=== PATIENT | male | born 1950 | race Caucasian/White ===

== ENCOUNTER 2017-08-12 08:46 | Outpatient (CLI) | payer MEDICARE ==
[~2017-08-12] VITALS: Ht 182.9 cm; Wt 106.8 kg
--- NOTE | ~2017-08-12 | HEMODYNAMI ---
PATIENT:SASKIA SÁNCHEZ MEDICAL RECORD: [id number] : 46 LOCATION:[facility] ADMISSION DATE: 08/12/17 Generatedon:08/12/201712:16 Patient name: SASKIA SÁNCHEZ Patient #: [id number] : 1950 Date of study: 08/12/2017 Page: Of Hemodynamic Procedure Report Patient Data Patient Demographics Procedure consent was obtained First Name: SASKIA Gender: Male Last Name: PRINCESS : 1950 Middle Initial: OWEN Age: 67 year(s) Patient #: [id number] Race: Unknown SSN: [id number] Additional ID: [id number] Contact details Address: [address] [place] [address] lane State: [place] City: [place] Zip code: [address] Past Medical History Allergies: No known allergies Admission Admission Data Admission Date: 08/12/2017 Admission Time: 8:46 Admit Source: Other Lab Results Lab Result Date: 08/12/2017 Lab Result Time: 9:34 Biochemistry Name Units Result Min Max BUN mg/dl 21 --(----)-* 7 18 Creatinine mg/dl 1 --(--*-)-- 0.6 1.3 CBC Name Units Result Min Max Hematocrit % 42.9 --(*---)-- 42 54 Hemoglobin g/dl 14.8 --(-*--)-- 13.5 17.5 Procedure Procedure Types Cath Procedure Diagnostic Procedure [facility] w/Coronaries FFR/IVUS Intra-Coronary IVUS Initial PCI Procedure Coronary Stent Coronary Stent Initial Miscellaneous Procedures Moderate Sedation up to 30 minutes Procedure Description Procedure Date Procedure Date: 08/12/2017 Procedure Start Time: 11:54 Procedure End Time: 12:16 Procedure Staff Name Function Edi Panchal MD Performing Physician Jami Fleming RT Monitor Sammy Perera RT Scrub Selwyn Bonds RN Nurse Jessy Galvez RN Nurse Procedure Data Cath Procedure Fluoroscopy Diagnostic fluoroscopy Total fluoroscopy Time: 6.2 time: 6.2 min min Diagnostic fluoroscopy Total fluoroscopy dose: dose: 656.17 mGy 656.17 mGy Contrast Material Contrast Material Type Amount (ml) Isovue 300 122 Entry Location Entry Primary Successful Side Size Upsize Upsize Entry Closure Real ccessful Closure Location (Fr) 1 (Fr) 2 (Fr) Remarks Device Remarks Radial Right 6 Fr Mechanical artery Short Compression Estimated blood loss: 10 ml Diagnostic catheters Device Type Used For End Catheter Placement DIAGNOSTIC Mesa 110cm 5 LV Angiography Fr catheter ([id number]) DIAGNOSTIC Mesa 110cm 5 Left Coronary Fr catheter ([id number]) Angiography DIAGNOSTIC Mesa 110cm 5 Right Coronary Fr catheter ([id number]) Angiography Procedure Complications No complications Procedure Medications Medication Administration Route Dosage 0.9% NaCl I.V. ml/hr Oxygen NC 2 l/min Lidocaine 2% added to field 20 Heparin Flush Bag added to field 2 bags (1000units/500ml NS) Radial Cocktail added to field 1 syringe (Verapomil 2mg/Nitro 400mcg/Heparin 1500units) Fentanyl I.V. 50 mcg Versed I.V. 1 mg Versed I.V. 1 mg Fentanyl I.V. 50 mcg Heparin Bolus I.V. 4000 units Hemodynamics Rest Pre Cath Intra NCS Post Cath Vital Signs Time Heart Resp SPO2 etCO2 NIBP (mmHg) Rhythm Pain Sedation Rate (ipm) (%) (mmHg) Status Level (bpm) 11:39:58 119 16 98 33.9 152/87(129) NSR 0 (11) 10(A) , No pain 11:44:28 63 16 98 37.7 144/86(127) NSR 0 (11) 10(A) , No pain 11:48:48 59 19 97 19.6 132/71(101) NSR 0 (11) 10(A) , No pain 11:53:06 60 18 95 39.9 116/76(98) NSR 0 (11) 10(A) , No pain 11:57:29 63 18 95 42.2 101/60(76) NSR 0 (11) 9(A) , No pain 12:01:40 63 17 98 46 115/74(85) NSR 0 (11) 9(A) , No pain 12:05:54 64 19 96 8.2 113/70(87) NSR 0 (11) 9(A) , No pain 12:10:11 64 18 97 22.6 124/71(100) NSR 0 (11) 10(A) , No pain 12:14:29 60 13 93 48.2 114/76(91) NSR 0 (11) 10(A) , No pain Medications Time Medication Route Dose Verified Delivered Reason Note s Effectiveness by by 11:43:37 0.9% NaCl I.V. ml/hr Edi Jiménez used for Abdulkadir Galvez RN procedure 11:43:46 Oxygen NC 2 l/min Edi Jiménez Per physician Abdulkadir Galvez RN 11:43:53 Lidocaine 2% added 20ml Edi Daley for local to vial Abdulkadir Panchal MD anesthetic field 11:44:02 Heparin Flush added 2 bags Edi Daley used for Bag to Abdulkadir Panchal MD procedure (1000units/500ml field NS) 11:48:09 Radial Cocktail added 1 Editripp Daley for (Verapomil to syringe Abdulkadir Panchal MD vasodilation 2mg/Nitro field 400mcg/Heparin 1500units) 11:50:01 Fentanyl I.V. 50 mcg Edi Jiménez for sedation Abdulkadir Galvez RN 11:50:09 Versed I.V. 1 mg Edi Jiménez for sedation Abdulkadir Galvez RN 11:52:23 Versed I.V. 1 mg Edi Jiménez for sedation Abdulkadir Galvez RN 11:53:01 Heparin Bolus I.V. 4000 Edi Jiménez for veri fied units Abdulkadir Galvez RN anticoagulation by 11:53:01 Fentanyl I.V. 50 mcg Edi Jiménez for sedation Abdulkadir Galvez RN Procedure Log Time Note 11:25:23 Informed consent obtained and on chart 11:25:31 Admit Source: Other 11:25:59 Diagnostic Cath status Elective 11:26:01 Time tracking: Regular hours 11:26:04 Plan of Care:Hemodynamics will remain stable., Cardiac rhythm will remain stable., Comfort level will be maintained., Respiratory function will remain adequate., Patient/ family verbilizes understanding of procedure., Procedure tolerated without complication., Recovers from procedure without complications.. 11:26:13 H&P Date Dictated: 08/10/2017 Within 30 days and on chart., H&P Addendum completed by physician on day of procedure. (MUST COMPLETE FOR ALL OUTPATIENTS). 11::33 Family in waiting room. 11::34 Patient NPO since Midnight. 11::30 Lab Result : Creatinine 1 mg/dl :: Lab Result : BUN 21 mg/dl 11:: Lab Result : Hemoglobin 14.8 g/dl 11:: Lab Result : Hematocrit 42.9 % 11:: Lab results completed and on chart. 11:33:53 Patient received from Pre/Post Procedure Room to CCL 3 Alert and oriented. Tansferred to table in Supine position. 11:33:54 Warm blankets applied, and mando hugger turned on for patient comfort. 11:33:54 Correct patient and procedure confirmed by team. 11:33:54 ECG and BP/O2 sat monitors applied to patient. 11:33:56 Pre-procedure instructions explained to patient. 11:33:56 Pre-op teaching completed and patient verbalized understanding. 11:34:02 Patient allergic to No known allergies 11:38:32 Vital chart was started 11:43:37 0.9% NaCl ml/hr I.V. was administered by Jessy Galvez RN; used for procedure; 11:43:46 Oxygen 2 l/min NC was administered by Jessy Galvez RN; Per physician; 11:43:53 Lidocaine 2% 20ml vial added to field was administered by Edi Panchal MD; for local anesthetic; 11:44:02 Heparin Flush Bag (1000units/500ml NS) 2 bags added to field was administered by Edi Panchal MD; used for procedure; 11:48:09 Radial Cocktail (Verapomil 2mg/Nitro 400mcg/Heparin 1500units) 1 syringe added to field was administered by Edi Panchal MD; for vasodilation; 11:48:23 Is the patient allergic to Iodine/contrast media? No. 11:48:26 Is patient on blood thinner?Yes 11:48:28 ACC The patient was administered the following blood thiners within the last 24 hours: ACCAspirin, ACCPlavix 11:48:30 Patient diabetic? No. 11:48:33 Previous problem with sedation/anesthesia? No ? 11:48:34 Snore? Yes 11:48:35 Sleep apnea? No 11:48:36 Deviated septum? No 11:48:37 Opens mouth fully? Yes 11:48:37 Sticks out tongue? Yes 11:48:39 Airway obstruction? No ? 11:48:40 Dentures? No ? 11:48:42 Pre procedure: right dorsailis pedis pulse 2+ Normal; easily identifiable; not easily obliterated 11:48:44 Modified Johnathan's test Ulnar < 7 seconds 11:48:45 Patient pain scale 0/10 ?. 11:48:49 IV patent on arrival in left hand with 0.9% NaCl at [facility]. 11:48:58 Right Radial & Right Groin area was prepped with chlora-prep and draped in sterile fashion 11:48:59 Alarms reviewed by R. N. 11:48:59 Sharps counted by scrub and verified by R.N. 11:49:06 Use device set Radial Dx 11:49:07 ACIST Syringe (34686) opened to sterile field. 11:49:08 Medline Cath Pack ([id number]) opened to sterile field. 11:49:08 Bag Decanter (2002S) opened to sterile field. 11:49:09 SHEATH 6FR Slender ([id number]) opened to sterile field. 11:49:09 DIAGNOSTIC WIRE .035 260cm J wire (062506) opened to sterile field. 11:49:10 ACIST Hand Control (44170) opened to sterile field. 11:49:11 ACIST Manifold (98172) opened to sterile field. 11:49:11 Tegaderm 4 x 4 (1626W) opened to sterile field. 11:49:12 MBrace Wrist Support ([id number]) opened to sterile field. 11:49:33 Final Timeout: patient, procedure, and site verified with staff and physician. All members of the team are in agreement. 11:49:36 Right Radial site verified by team. 11:49:38 Physical assessment completed. ASA score P 2 - A patient with mild systemic disease as per Edi Panchal MD. 11:49:41 Sedation plan: IV Moderate Sedation Medication:Versed, Fentanyl 11:50:01 Fentanyl 50 mcg I.V. was administered by Jessy Galvez RN; for sedation; 11:50:09 Versed 1 mg I.V. was administered by Jessy Galvez RN; for sedation; 11:52:23 Versed 1 mg I.V. was administered by Jessy Galvez RN; for sedation; 11:53:01 Heparin Bolus 4000 units I.V. was administered by Jessy Galvez RN; for anticoagulation; verified by 11:53:01 Fentanyl 50 mcg I.V. was administered by Jessy Galvez RN; for sedation; 11:54:12 Procedure started. 11:54:12 Full Disclosure recording started 11:54:17 Local anesthetic to right radial artery with Lidocaine 2% by Edi Panchal MD.INITIAL ACCESS ONLY 11:54:26 A 6 Fr Short sheath was inserted into the Right Radial artery 11:55:31 A DIAGNOSTIC Mesa 110cm 5 Fr catheter ([id number]) was advanced over the wire and used for LV Angiography. 11:56:07 LV gram done using AVILES 11:56:20 Injector settings: Ml/sec: 5, Volume: 15, 11:56:25 EF : 55 % 11:56:58 A DIAGNOSTIC Mesa 110cm 5 Fr catheter ([id number]) was advanced over the wire and used for Left Coronary Angiography. 11:57:34 A DIAGNOSTIC Mesa 110cm 5 Fr catheter (157588) was advanced over the wire and used for Right Coronary Angiography. 11:58:17 GUIDE 6FR XB 3.5 SH catheter ([id number]) opened to sterile field. 11:59:05 Catheter removed. 11:59:11 6 Fr XB 3.5 SH guide catheter was inserted over the wire 11:59:24 Use device set [facility] PCI 11:59:27 INFLATOR Merit BasixCompak (BL8263) opened to sterile field. 11:59:49 CHOICE PT Extra Support J 300cm guide wire ([id number]) opened to sterile field. 12:02:25 GUIDE 6FR XBLAD 4.0 catheter (42152044) opened to sterile field. 12:02:46 Viola Walton Eagleye IVUS Catheter (42397W) opened to sterile field. 12:02:59 Guide catheter removed. 12:03:06 6 Fr XBLAD 4.0 guide catheter was inserted over the wire 12:03:12 Choice PT ES wire advanced. 12:03:55 IVUS catheter advanced over wire. 12:03:56 IVUS pass to LAD lesion performed. 12:05:19 IVUS catheter removed over wire. 12:07:34 Inflation Number: 1 A PATRICIA OTW 2.5 x 38 stent ([id number]) was prepped and advanced across the Mid LAD. The stent was deployed at 15 KACI for 0:06 (min:sec). 12:08:03 Stent catheter was removed intact over wire. 12:10:15 Inflation Number: 1 A PATRICIA OTW 2.25 x 22 stent ([id number]) was prepped and advanced across the Dist LAD. The stent was deployed at 13 KACI for 0:07 (min:sec). 12:10:26 Inflation number: 2 The stent balloon was then re-inflated across the Dist LAD to 17 KACI for 0:10 (min:sec). 12:10:31 Stent catheter was removed intact over wire. 12:10:48 Wire removed. 12:10:48 Guide catheter removed. 12:11:09 Sheath removed intact; hemostasis achieved with Mechanical Compression to the Right Radial artery. 12:11:12 Procedure ended.(Physican Out) 12:11:38 Fluoroscopy time 06.20 minutes. 12:11:44 Fluoroscopy dose: 656.17 mGy 12:11:44 Flurop Dose total: 656.17 12:11:47 Contrast amount:Isovue 300 122ml. 12:11:48 Sharps counted by scrub and verified by R.N. 12:11:52 TR band inflated with 12cc of air. 12:11:53 Insertion/operative site no bleeding no hematoma. 12:11:59 Post right radial artery:stable, soft, clean and dry 12:12:00 Post Procedure Pulses reassessed and unchanged 12:12:04 Post-procedure physical assessment completed. ASA score P 2 - A patient with mild systemic disease as per Edi Panchal MD. 12:12:07 Post procedure rhythm: unchanged. 12:12:11 Estimated blood loss: 10 ml 12:12:12 Post procedure instruction explained to patient.Patient verbalizes understanding. 12:12:13 Patient needs reinforcement of post procedure teaching. 12:12:18 Procedure Complication : No complications 12:12:21 See physician's report for complete and final results. 12:13:57 TR BAND Standard ([id number]) opened to sterile field. 12:14:57 Procedure type changed to Cath procedure, Diagnostic procedure, LHC, LHC w/Coronaries, FFR/IVUS, Intra-Coronary IVUS Initial, PCI procedure, Coronary Stent, Coronary Stent Initial, Miscellaneous Procedures, Moderate Sedation up to 30 minutes 12:15:47 Procedure and supply charges have been captured, reviewed, submitted and are correct. 12:15:49 Vital chart was stopped 12:15:50 Report given to Pre/Post Procedure Room. 12:15:53 Patient transfered to Pre/Post Procedure Room with Stretcher. 12:16:05 Procedure ended. 12:16:05 Full Disclosure recording stopped 12:16:07 End room use (Document Last) Intervention Summary Intervention Notes Time ActionType Lesion and Equipment Action# Pressure Duration Attributes Used 12:07:34 Place stent Mid LAD PATRICIA OTW 2.5 1 15 00:06 x 38 stent ([id number]) 12:10:15 Place stent Dist LAD PATRICIA OTW 2.25 1 13 00:07 x 22 stent ([id number]) 12:10:26 Reinflate Dist LAD PATRICIA OTW 2.25 2 17 00:10 stent x 22 stent balloon ([id number]) Device Usage Item Name Manufacture Quantity Catalog Number Hospital Part Current Min imal Lot# / Charge Number Stock Stock Serial# Code ACIST Syringe Acist 1 14872 202190 325078 792133 20 (50516) Medical Systems Inc Medline Cath Cardinal 1 [id number] 653603 15215 169407 5 [facility] ([id number]) Bag Decanter Microtek 1 145781 40300 369980 5 () Medical Inc. SHEATH 6FR Terumo 1 [id number] 730741 336587 095713 40 Slender ([id number]) DIAGNOSTIC [facility] 1 137972 176706 812979 406794 30 WIRE .035 260cm J wire (585358) ACIST Hand Acist 1 93371 739012 642634 536579 5 Control Medical (51255) Systems Inc ACIST Acist 1 17614 178772 839880 559326 5 Manifold Medical (38621) Systems Inc Tegaderm 4 x 3M 1 1626W 040649 505404 578403 5 4 (1626W) MBrace Wrist Advanced 1 140-0250-00 174687 08151 610754 5 Support Vascular ([id number]) Dynamics DIAGNOSTIC Terumo 1 40-9253 493842 708672 408116 5 Mesa 110cm 5 Fr catheter (395673) GUIDE 6FR XB Cardinal 1 [id number] 380658 045072 183922 2 3.5 SH Health catheter (95559493) INFLATOR Merit 1 DB5948 491084 284146 564579 15 [facility] Medical BasixCompak (ND7579) CHOICE PT [place] 1 [id number] 822838 774997 896460 5 Extra Support Scientific J 300cm guide wire (1014937V8) GUIDE 6FR Cardinal 1 [id number] 946289 424082 456418 3 XBLAD 4.0 Health catheter (70173902) Viola Viola 1 40274G 462449 301482 780129 8 Walton Eagleye IVUS Catheter (12105R) PATRICIA OTW 2.5 Medtronic 1 [id number] 598580 52749 018505 5 [id number] x 38 stent ([id number]) PATRICIA OTW 2.25 Medtronic 1 [id number] 336520 21542 275103 5 [id number] x 22 stent ([id number]) TR BAND Terumo 1 [id number] 453890 041105 080795 40 Standard ([id number]) Signature Audit [place] Stage Time Signature Unsigned Intra-Procedure 08/12/2017 Jami 12:16:30 PM Counts RT(R) Signatures Monitor : Jami Signature : Counts RT Date : Time : [facility] [address] [place] [address]
[~2017-08-12 08:46] MED LIST: ACETAMINOPHEN500 M1 PO; ARICEPT10 MG PO; BAYER CHEWABLE81 MG PO; BENADRYL50 MG PO; CELEXA40 MG PO; PLAVIX75 MG PO; PRINIVIL10 MG PO
[2017-08-12 09:30] VITALS: BP 146/76; Ht 182.9 cm; Wt 106.8 kg
[2017-08-12 09:35] LABS: BASOPHILS 0.1 % (0-2); EOSINOPHILS 0.3 % (0-7); HEMATOCRIT 42.9 % (42.0-54.0); HEMOGLOBIN 14.8 g/dL (13.5-17.5); IMMATURE GRANULOCYTES 0.3 % (0-5); LYMPHOCYTES 18.4 % (15-50); MCH 30.9 pg (26.0-34.0); MCHC 34.5 g/dL (31.0-37.0); MCV 89.6 fL (80.0-100.0); MEAN PLATELET VOLUME 9.6 fL (7.4-10.4); MONOCYTES 6.8 % (2-11); NEUTROPHILS 74.1 % (40-80); PLATELET COUNT 228 10x3/uL (130-400); RBC 4.79 10x6/uL (4.20-6.10); RDW 12.3 % (11.5-14.5); WBC 9.6 10x3/uL (4.8-10.8)
[2017-08-12 10:03] LABS: CALC OSMOLALITY 285 mosm/kg (275-300); CALCIUM 10.3 mg/dL (8.5-10.1); CARBON DIOXIDE 28.3 mmol/L (21.0-32.0); CHLORIDE - SERUM 106 mmol/L (98-107); GLUCOSE 106 mg/dL (74-106); POTASSIUM - SERUM 3.8 mmol/L (3.5-5.1); SODIUM 142 mmol/L (136-145); UREA NITROGEN 21 mg/dL (7-18); eGFR NON AFRICAN AMERICAN 79 mL/min (90-120)
[2017-08-12] MEDS ORDERED: NEURONTIN600 MG PO (10:05)
--- NOTE | 2017-08-12 12:40 | NUR ---
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 TR BAND TO RIGHT WRIST IS CDI, AREA FREE FROM BLEEDING OR HEMATOMA. FINGERS WARM, CAP REFILL IS BRISK. SINUS BRADYCARDIA WITH BP 119/72. PT DENIES ANY C/O. AT BEDSIDE AND CALL LIGHT IN REACH.
--- NOTE | 2017-08-12 12:44 | NUR ---
1240 PT COLTON PO FLUIDS WITH NO C/O. TR BAND CDI. NSR, RATE 60. FINGERS WARM, CAP REFILL IS BRISK. CALL LIGHT IN REACH.
--- NOTE | 2017-08-12 13:17 | NUR ---
TR BAND TO RIGHT WRIST IS CDI, NO BLEEDING OR HEMATOMA NOTED. FINGERS WARM, CAP REFILL IS BRISK, AT BEDSIDE. RR EVEN AND UNLABORED. CALL LIGHT IN REACH. SANDWICH SERVED.
--- NOTE | 2017-08-12 13:39 | NUR ---
PT ALERT, DENIES ANY C/O. TR BAND TO RIGHT WRIST IS CDI, NO BLEEDING OR HEMATOMA NOTED. FINGERS WARM, CAP REFILL IS BRISK. AT BEDSIDE,
--- NOTE | 2017-08-12 14:05 | NUR ---
1405 PT HAS VOIDED 600 CC LEAR YELLOW URINE USING URINAL. TR BAND CDI, NO BLEEDING NOTED. FINGERS WARM, CAP REFILL IS BRISK.
--- NOTE | 2017-08-12 15:15 | NUR ---
1515 3 CC OF AIR REMOVED FROM TR BAND WITH NO BLEEDING OR HEMATOMA NOTED. PT HAS COLTON SANDWICH WITH NO C/O NAUSEA. CALL LIGHT IN REACH. PT DENIES NEESDS AT THIS TIME.
--- NOTE | 2017-08-12 15:30 | NUR ---
1530 3 CC OF AIR REMOVED FROM TR BAND WITH NO BLEEDING OR HEMATOMA NOTED.
--- NOTE | 2017-08-12 15:45 | NUR ---
1545 REMAINING AIR REMOVED FROM TR BAND WITH NO BLEEDING OR HEMATOMA NOTED. FINGERS WARM, CAP REFILL IS BRISK. PT DENIES ANY C/O AT THIS TIME.
--- NOTE | 2017-08-12 16:00 | NUR ---
1600 IV DC'D WITH CATH INTACT. 2X2 AND TEGADERM CDI TO RIGHT WRIST. WRIST IMMOBILIZER IN PLACE. PT IS DRESSING FOR DC TO HOME. L
--- NOTE | 2017-08-12 16:51 | NUR ---
4827 DC INSTRUCTIONS REVIEWED WITH PT AND WHO VERBALIZE UNDERSTANDING. STENT CARD, PLAVIX PRESCRIPTION AND WRITTEN INSTRUCTIONS GIVEN TO PT. PT ESCORTED TO PRIVATE AUTO VIA WC BY NURSE WITH DRIVING HIM HOME. DRESSING TO RIGHT WRIST REMAINS CDI, PT DENIES ANY C/O UPON DC TO HOME.
--- NOTE | 2017-08-24 15:46 | OP ---
PATIENT NAME: SASKIA SÁNCHEZ MEDICAL RECORD: [id number] :46 LOCATION:D.CAT ADMISSION DATE: SURGEON: DIPTI DONALD MD DATE OF OPERATION: 08/12/2017 PROCEDURES: 1. PTCA stent to LAD. 2. Intravascular ultrasound. 3. Left heart catheterization. 4. Selective coronary angiography. 5. Left ventriculogram. INDICATION: Angina and coronary artery disease. PROCEDURE IN DETAIL: After informed consent was obtained and after detailed explanation of risks, benefits as well as alternative therapies, the patient elected to proceed with angiogram and angioplasty. The right radial area was prepped and draped in normal sterile fashion. The right radial artery was cannulated via modified Seldinger technique with placement of 6-[place]ib[place] sheath. All catheters exchanged through this sheath. FINDINGS: Left ventriculogram was performed in the standard 30-degree AVILES view reveals good cardiac wall motion throughout all segments. Overall ejection fraction estimated at 50%. SELECTIVE CORONARY ANGIOGRAPHY: 1. Left main showed no significant angiographic disease. 2. Left anterior descending has a long area of 80% to 90% stenosis throughout the mid and mid distal vessel. 3. Left circumflex has 100% occlusion in the mid vessel. 4. The right coronary artery has multiple areas of 80% stenosis throughout the mid distal vessel. PTCA STENT OF THE LAD: The stents used were 2.5 x 38 and 2.25 x 22 both [place] stents. Result was 0% residual stenosis. OVERALL IMPRESSION: Successful percutaneous transluminal coronary angioplasty stent of the left anterior descending going from multiple areas of 80% initial stenosis to 0% residual. TRANSINT:[id number] Voice Confirmation ID: [id number] DOCUMENT ID: [id number] DIPTI DONALD MD at 1546 CC: [id number] DICTATION DATE: 08/12/[address] PRODUCTION MANAGER: 08/12/17 1346 [facility] CLI 08/12/[address] [address]
== END 2017-08-12 16:25 | disposition home or self-care (01) ==
LOC: D.CATH 08:46
PROVIDERS: Internal Medicine Interventional Cardiology
DX: I25.119 Atherosclerotic heart disease of native coronary artery with unspecified angina pectoris (principal); Z01.812 Encounter for preprocedural laboratory examination
CPT/HCPCS: 93458; 92978; C9600

== ENCOUNTER 2017-08-16 08:02 | Outpatient (CLI) | payer MEDICARE ==
[2017-08-12 09:30] VITALS: Ht 182.9 cm; Wt 106.6 kg
[~2017-08-16] VITALS: Ht 182.9 cm; Wt 106.6 kg
--- NOTE | ~2017-08-16 | HEMODYNAMI ---
PATIENT:SASKIA SÁNCHEZ MEDICAL RECORD: [id number] : 46 LOCATION:D.CAT ADMISSION DATE: 08/16/17 Generatedon:08/16/201712:21 Patient name: SASKIA SÁNCHEZ Patient #: [id number] : 1950 Date of study: 08/16/2017 Page: Of Hemodynamic Procedure Report Patient Data Patient Demographics Procedure consent was obtained First Name: SASKIA Gender: Male Last Name: PRINCESS : 1950 Middle Initial: OWEN Age: 67 year(s) Patient #: [id number] Race: Unknown SSN: [id number] Additional ID: [id number] Contact details Address: [address] [place] [address] lane State: [place] City: [place] Zip code: [address] Past Medical History Allergies: No known allergies Admission Admission Data Admission Date: 08/16/2017 Admission Time: 8:02 Lab Results Lab Result Date: 08/16/2017 Lab Result Time: 0:00 Biochemistry Name Units Result Min Max BUN mg/dl 33 --(----)-* 7 18 Creatinine mg/dl 1.1 --(--*-)-- 0.6 1.3 CBC Name Units Result Min Max Hemoglobin g/dl 15.3 --(-*--)-- 13.5 17.5 Procedure Procedure Types Cath Procedure PCI Procedure Coronary Stent Coronary Stent Initial Miscellaneous Procedures Moderate Sedation up to 15 minutes Procedure Description Procedure Date Procedure Date: 08/16/2017 Procedure Start Time: 12:02 Procedure End Time: 12:21 Procedure Staff Name Function Edi Panchal MD Performing Physician Denis Leslie RN Nurse Daniel Cohen RT Scrub Jesenia Liu RT Monitor Procedure Data Cath Procedure Fluoroscopy Diagnostic fluoroscopy Total fluoroscopy Time: 6.2 time: 6.2 min min Diagnostic fluoroscopy Total fluoroscopy dose: 425 dose: 425 mGy mGy Contrast Material Contrast Material Type Amount (ml) Isovue 300 134 Entry Location Entry Primary Successful Side Size Upsize Upsize Entry Closure Real ccessful Closure Location (Fr) 1 (Fr) 2 (Fr) Remarks Device Remarks Radial Right 6 Fr Mechanical TR BAND artery Short Compression Estimated blood loss: 10 ml Procedure Complications No complications Procedure Medications Medication Administration Route Dosage Oxygen NC 2 l/min Heparin Flush Bag added to field 2 bags (1000units/500ml NS) 0.9% NaCl I.V. 100 ml/hr Radial Cocktail added to field 1 syringe (Verapomil 2mg/Nitro 400mcg/Heparin 1500units) Fentanyl I.V. 50 mcg Versed I.V. 1 mg Radial Cocktail I.A. 1 syringe (Verapomil 2mg/Nitro 400mcg/Heparin 1500units) Fentanyl I.V. 50 mcg Versed I.V. 1 mg Heparin Bolus I.V. 4000 units Hemodynamics Rest HGB: 15.3 (g/dl) Heart Rate: 61 (bpm) Snapshots Pre Cath Intra NCS Post Cath Vital Signs Time Heart Resp SPO2 etCO2 NIBP (mmHg) Rhythm Pain Sedation Rate (ipm) (%) (mmHg) Status Level (bpm) 11:46:32 64 16 96 0 123/76(98) NSR 0 (11) 10(A) , No pain 11:50:58 60 17 97 33.1 131/77(102) NSR 0 (11) 10(A) , No pain 11:55:26 60 18 99 37.7 132/77(107) NSR 0 (11) 10(A) , No pain 11:59:45 63 19 94 0 111/70(98) NSR 0 (11) 10(A) , No pain 12:04:02 68 17 94 0 74/50(66) NSR 0 (11) 9(A) , No pain 12:08:10 73 18 91 31.6 85/62(81) NSR 0 (11) 9(A) , No pain 12:12:22 72 18 91 25.6 102/63(82) NSR 0 (11) 9(A) , No pain 12:16:42 71 20 90 36.1 103/57(80) NSR 0 (11) 9(A) , No pain 12:20:56 70 17 90 28.6 94/62(86) NSR 0 (11) 9(A) , No pain Medications Time Medication Route Dose Verified Delivered Reason Note s Effectiveness by by 11:53:07 Oxygen NC 2 l/min Edi Barrios Per physician Abdulkadir Leslie RN 11:53:15 Heparin Flush added 2 bags Edi Barrios used for Bag to Abdulkadir Leslie RN procedure (1000units/500ml field NS) 11:53:25 0.9% NaCl I.V. 100 Edi Barrios Per physician ml/hr Abdulkadir Leslie RN 11:53:35 Radial Cocktail added 1 Edi Barrios used for (Verapomil to syringe Abdulkadir Leslie RN procedure 2mg/Nitro field 400mcg/Heparin 1500units) 12:00:44 Fentanyl I.V. 50 mcg Edi Barrios for sedation Abdulkadri Leslie RN 12:00:51 Versed I.V. 1 mg Edi Barrios for sedation Abdulkadir Leslie RN 12:02:03 Radial Cocktail I.A. 1 Edi Daley for (Verapomil syringe Abdulkadir Panchal MD vasodilation 2mg/Nitro 400mcg/Heparin 1500units) 12:02:10 Fentanyl I.V. 50 mcg Edi Barrios for sedation Abdulkadir Leslie RN 12:02:18 Versed I.V. 1 mg Edi Barrios for sedation Abdulkadir Leslie RN 12:03:19 Heparin Bolus I.V. 4000 Edi Barrios for units Abdulkadir Leslie RN anticoagulation Procedure Log Time Note 10:39:23 Time tracking: Regular hours 10:39:29 Plan of Care:Hemodynamics will remain stable., Cardiac rhythm will remain stable., Comfort level will be maintained., Respiratory function will remain adequate., Patient/ family verbilizes understanding of procedure., Procedure tolerated without complication., Recovers from procedure without complications.. 10:42:16 Lab Result : BUN 33 mg/dl 10:42:16 Lab Result : Creatinine 1.1 mg/dl 10:42:16 Lab Result : Hemoglobin 15.3 g/dl 11:20:40 Denis Leslie RN sent for patient. Start room use. 11:39:11 Patient received from Pre/Post Procedure Room to [facility] Alert and oriented. Tansferred to table in Supine position. 11:39:12 Warm blankets applied, and mando hugger turned on for patient comfort. 11:39:13 Correct patient and procedure confirmed by team. 11:39:14 Signed procedure consent form obtained from patient. 11:39:15 ECG and BP/O2 sat monitors applied to patient. 11:45:03 Vital chart was started 11:46:48 Baseline sample Acquired. 11:46:52 Rhythm: sinus rhythm 11:46:54 Full Disclosure recording started 11:47:53 H&P Date Dictated: 08/16/2017 Within 30 days and on chart.. 11:47:55 Pre-procedure instructions explained to patient. 11:47:56 Pre-op teaching completed and patient verbalized understanding. 11:48:08 Family in waiting room. 11:48:11 Patient NPO since Midnight. 11:48:19 Patient allergic to No known allergies 11:48:22 Is the patient allergic to Iodine/contrast media? No. 11:48:24 Is patient on blood thinner?Yes 11:48:34 ACC The patient was administered the following blood thiners within the last 24 hours: ACCPlavix 11:48:49 Patient diabetic? No. 11:48:53 ----Pre-sedation anethsthesia assessment.---- 11:48:55 Previous problem with sedation/anesthesia? No ? 11:48:57 Snore? Yes 11:48:58 Sleep apnea? Yes 11:48:59 Deviated septum? No 11:49:00 Opens mouth fully? Yes 11:49:01 Sticks out tongue? Yes 11:49:04 Airway obstruction? No ? 11:49:08 Dentures? No ? 11:49:31 Pre procedure: right dorsailis pedis pulse Doppler 11:49:35 Patient pain scale 0/10 ?. 11:49:55 IV patent on arrival in left wrist with 0.9% NaCl at KVO. 11:50:18 Lab results completed and on chart. 11:50:26 Right Radial & Right Groin area was prepped with chlora-prep and draped in sterile fashion 11:50:28 Alarms reviewed by R. N. 11:50:28 Sharps counted by scrub and verified by R.N. 11:53:07 Oxygen 2 l/min NC was administered by Denis Leslie RN; Per physician; 11:53:15 Heparin Flush Bag (1000units/500ml NS) 2 bags added to field was administered by Denis Leslie RN; used for procedure; 11:53:25 0.9% NaCl 100 ml/hr I.V. was administered by Denis Leslie RN; Per physician; 11:53:35 Radial Cocktail (Verapomil 2mg/Nitro 400mcg/Heparin 1500units) 1 syringe added to field was administered by Denis Leslie RN; used for procedure; 11:53:56 Physician paged 11:58:10 --------ALL STOP TIME OUT------ 11:58:11 Final Timeout: patient, procedure, and site verified with staff and physician. All members of the team are in agreement. 11:58:13 Right Radial & Right Groin site verified by team. 11:58:16 Physical assessment completed. ASA score P 2 - A patient with mild systemic disease as per Edi Panchal MD. 11:58:20 Sedation plan: IV Moderate Sedation Medication:Versed, Fentanyl 12:00:44 Fentanyl 50 mcg I.V. was administered by Denis Leslie RN; for sedation; 12:00:51 Versed 1 mg I.V. was administered by Denis Leslie RN; for sedation; 12:01:10 Procedure started. 12:01:15 Use device set TAUTH PCI 12:01:25 Use device set CATH PACK 12:01:27 ACIST Syringe (77233) opened to sterile field. 12:01:27 ACIST Hand Control (09685) opened to sterile field. 12:01:28 ACIST Manifold (87747) opened to sterile field. 12:01:28 Medline Cath Pack ([id number]) opened to sterile field. 12:01:29 Bag Decanter (2002) opened to sterile field. 12:01:30 DIAGNOSTIC WIRE .035 260cm J wire (978543) opened to sterile field. 12:01:31 INFLATOR Merit BasixCompak (OD8380) opened to sterile field. 12:01:50 SHEATH 6FR Slender ([id number]) opened to sterile field. 12:02:03 Radial Cocktail (Verapomil 2mg/Nitro 400mcg/Heparin 1500units) 1 syringe I.A. was administered by Edi Panchal MD; for vasodilation; 12:02:04 GUIDE 6FR AR 2.0 catheter (SE3YZ92) opened to sterile field. 12:02:06 Zero performed for pressure channel P1 12:02:10 Fentanyl 50 mcg I.V. was administered by Denis Leslie RN; for sedation; 12:02:18 Versed 1 mg I.V. was administered by Denis Leslie RN; for sedation; 12:02:25 Local anesthetic to right radial artery with Lidocaine 2% by Edi Panchal MD.INITIAL ACCESS ONLY 12:02:35 A 6 Fr Short sheath was inserted into the Right Radial artery 12:02:53 6 Fr AR2 guide catheter was inserted over the wire 12:03:19 Heparin Bolus 4000 units I.V. was administered by Denis Leslie RN; for anticoagulation; 12:05:02 CHOICE PT Extra Support 182cm wire ([id number]) opened to sterile field. 12:05:17 CHOICE ES wire advanced. 12:09:58 CHOICE ES REMOVED. CANNOT CROSS LESION 12:10:19 WHISPER 190cm wire ([id number]) opened to sterile field. 12:11:07 WHISPER wire advanced. 12:12:16 Wire advanced across lesion. 12:13:40 Inflation Number: 1 A PATRICIA RX 2.75 x 22 stent ([id number]) was prepped and advanced across the R PDA. The stent was deployed at 17 KACI for 0:10 (min:sec). 12:13:57 Stent catheter was removed intact over wire. 12:14:06 Wire removed. 12:14:06 Guide catheter removed. 12:14:21 TR BAND Standard ([id number]) opened to sterile field. 12:14:52 Sheath removed intact; hemostasis achieved with Mechanical Compression to the Right Radial artery. 12:14:55 Procedure ended.(Physican Out) 12:15:36 Contrast amount:Isovue 300 134ml. 12:15:40 Sharps counted by scrub and verified by R.N. 12:15:43 Fluoroscopy time 06.20 minutes. 12:15:45 Flurop Dose total: 425 12:15:45 Fluoroscopy dose: 425 mGy 12:16:10 TR band inflated with 10cc of air. 12:17:33 Post-procedure physical assessment completed. ASA score P 2 - A patient with mild systemic disease as per Edi Panchal MD. 12:17:38 Post procedure rhythm: unchanged. 12:17:41 Estimated blood loss: 10 ml 12:17:45 Post procedure instruction explained to patient.Patient verbalizes understanding. 12:17:46 Patient needs reinforcement of post procedure teaching. 12:19:48 NEEDLE Cook 21G 4cm Radial ([id number]) opened to sterile field. 12:20:10 Procedure and supply charges have been captured, reviewed, submitted and are correct. 12:20:13 Procedure Complication : No complications 12:20:54 Vital chart was stopped 12:20:55 See physician's report for complete and final results. 12:20:58 Report given to Pre/Post Procedure Room. 12:21:02 Patient transfered to Pre/Post Procedure Room with Bed. 12:21:04 Procedure ended. 12:21:04 Full Disclosure recording stopped 12:21:07 End room use (Document Last) Intervention Summary Intervention Notes Time ActionType Lesion and Equipment Used Action# Pressure Duration Attributes 12:13:40 Place stent R PDA PATRICIA RX 2.75 x 1 17 00:10 22 stent ([id number]) Device Usage Item Name Manufacture Quantity Catalog Number Hospital Part Current M inimal Lot# / Charge Number Stock Stock Serial# Code ACIST Syringe Acist 1 30854 011133 100244 205774 2 0 (75304) Medical Systems Inc ACIST Hand Acist 1 83393 499590 607332 615550 5 Control Medical (10042) Systems Inc ACIST Manifold Acist 1 96692 817782 550801 126333 5 (48160) Medical Systems Inc Medline Cath Cardinal 1 [id number] 489246 33345 212657 5 [facility] ([id number]) Bag Decanter Microtek 1 2001S 199027 02607 346405 5 () Medical Inc. DIAGNOSTIC [facility] 1 207504 808329 396616 480363 3 0 WIRE .035 260cm J wire (252015) INFLATOR Merit Merit 1 JI7786 097693 286997 253401 1 5 Clout (OU8787) SHEATH 6FR Terumo 1 [id number] 983646 723713 218215 4 0 Slender ([id number]) GUIDE 6FR AR Medtronic 1 [id number] 714860 12666 142068 1 2.0 catheter (WQ7WO59) CHOICE PT [place] 1 [id number] 142006 966944 647733 5 Extra Support Scientific 182cm wire ([id number]) WHISPER 190cm Lora 1 [id number] 875783 709320 530842 5 wire Vascular ([id number]) PATRICIA RX 2.75 x Medtronic 1 [id number] 730873 6472419 894576 5 [id number] 22 stent ([id number]) TR BAND Terumo 1 [id number] 358286 703059 155601 4 0 Standard (TYL46BYG) NEEDLE [facility] 1 [id number] 537579 481342 162030 5 21G 4cm Radial (M22456) Signature Audit Gay Stage Time Signature Unsigned Intra-Procedure 08/16/2017 Jesenia Liu 12:21:28 PM RT(R) Signatures Monitor : Jesenia Liu Signature : RT Date : Time : [place] [id number] [place] [address]
[~2017-08-16 08:02] MED LIST changes: +NEURONTIN600 MG PO
[2017-08-16 09:03] LABS: BASOPHILS 0.1 % (0-2); EOSINOPHILS 1.3 % (0-7); HEMATOCRIT 43.2 % (42.0-54.0); HEMOGLOBIN 15.3 g/dL (13.5-17.5); IMMATURE GRANULOCYTES 1.2 % (0-5); LYMPHOCYTES 29.2 % (15-50); MCH 31.2 pg (26.0-34.0); MCHC 35.4 g/dL (31.0-37.0); MCV 88.2 fL (80.0-100.0); MEAN PLATELET VOLUME 9.3 fL (7.4-10.4); MONOCYTES 9.6 % (2-11); NEUTROPHILS 58.6 % (40-80); PLATELET COUNT 252 10x3/uL (130-400); RDW 12.4 % (11.5-14.5); WBC 7.5 10x3/uL (4.8-10.8)
[2017-08-16 09:16] LABS: ANION GAP 13.5 mmol/L (8-16); CALCIUM 10.9 mg/dL (8.5-10.1); CARBON DIOXIDE 24.6 mmol/L (21.0-32.0); CREATININE - SERUM 1.1 mg/dL (0.6-1.3); POTASSIUM - SERUM 4.1 mmol/L (3.5-5.1)
--- NOTE | 2017-08-16 13:25 | NUR ---
1245 RESTING WITH EYES CLOSED. ROOM AIR, NO DISTRESS. NSR RATE 63 W NO C/O CHEST PAIN. PULSES PALP X 4. R WRIST TR BAND C/D/I W NO HEMATOMA OR BLEEDING.
--- NOTE | 2017-08-16 15:55 | NUR ---
1315 EATING TURKEY SANDWICH WITH NO ASSIST. R WRIST REMAINS C/D/I W NO HEMATOMA OR BLEEDING. AT SIDE. ALL VITALS WNL. 1400 R WRIST TR BAND C/D/I. NO NEEDS AT THIS TIME. 1500 RESTING WITH EYES CLOSED. R WRIST C/D/I. 1555 2CC AIR REMOVED FROM R WRIST TR BAND. WILL MONITOR FOR BLEEDING.
--- NOTE | 2017-08-16 16:17 | NUR ---
2CC AIR REMOVED FROM R WRIST TR BAND. PIV REMOVED FROM LEFT WRIST WITH BANDAID APPLIED. UP TO BEDSIDE TO DRESS WITH ASSIST FROM .
--- NOTE | 2017-08-16 16:39 | NUR ---
TEGADERM WEANED COMPLETELY. TEGADERM AND 2X2 APPLIED TO R WRIST WITH BRACE IN PLACE. D/C INSTRUCTIONS DISCUSSED WITH AND PATIENT. WHEELED OUT VIA WHEELCHAIR.
--- NOTE | 2017-08-24 15:46 | OP ---
PATIENT NAME: SASKIA SÁNCHEZ MEDICAL RECORD: [id number] :46 LOCATION:D.CAT ADMISSION DATE: SURGEON: DIPTI DONALD MD DATE OF OPERATION: 08/16/2017 PROCEDURES: 1. PTCA stent RCA. 2. Selective coronary angiography. INDICATION: Angina and coronary artery disease. PROCEDURE IN DETAIL: After informed consent was obtained and after detailed explanation of risks, benefits as well as alternative therapies, the patient elected to proceed with angiogram and angioplasty. The right radial area is prepped and draped in normal sterile fashion. The right radial artery was cannulated via modified Seldinger technique with placement of a 6-[place] sheath. All catheters exchanged through this sheath. FINDINGS: The right coronary has 90% to 95% stenosis at the ostium with PDA, was addressed with a 2.75 x 22 mm [place] stent. Result was 0% residual stenosis. OVERALL IMPRESSION: Successful percutaneous transluminal coronary angioplasty stent of the right coronary artery going from 95% initial stenosis to 0% residual. TRANSINT:[id number] Voice Confirmation ID: [id number] DOCUMENT ID: [id number] DIPTI DONALD MD at 1546 CC: [id number] DICTATION DATE: 08/16/17 1217 SPINNER CONCRETE PIPE: 08/16/17 1253 [facility] CLI 08/16/[address] [address]
--- NOTE | 2017-08-24 15:46 | HP ---
PATIENT: SASKIA SÁNCHEZ MEDICAL RECORD: [id number] ACCOUNT: [id number] LOCATION:[facility]AT[place] : 46 ADMISSION DATE: 08/16/17 HISTORY AND PHYSICAL EXAMINATION ADMITTING DIAGNOSES: 1. Angina. 2. Coronary artery disease. 3. Recent percutaneous transluminal coronary angioplasty stent of left anterior descending with significant disease of the right coronary artery. 4. Hypertension. HISTORY OF PRESENT ILLNESS: This is a gentleman who presents with unstable anginal symptomatology, found to have 2-vessel disease of the LAD and RCA, underwent successful PTCA stent of the LAD. He is now brought back for PTCA stent of the RCA. REVIEW OF SYSTEMS: The patient reports easy bruising but reports no swollen glands. The patient reports no fever, no night sweats, no significant weight gain, no significant weight loss. No significant exercise tolerance. The patient reports no dry eyes, no irritation, no vision change. Patient reports no difficulty hearing and no ear pain. Patient reports no frequent nose bleeds or nose and sinus problems. Patient reports on arm pain on exertion. No shortness of breath while lying down. No history of heart murmur. Patient reports no cough, no wheezing or coughing up blood. Patient reports no abdominal pain, no vomiting. Normal appetite. No diarrhea and not vomiting blood. No nausea and no constipation. Patient reports no incontinence. No difficulty urinating. No hematuria. No increased frequency. Patient reports no muscle aches. No weakness, no arthralgias, no back pain. No swelling of the extremities. Patient reports no abnormal mole, no jaundice, no rashes. Reports no loss of consciousness. No weakness and no numbness. No seizures, dizziness, or headaches. The patient reports no depression, no sleep disturbance, feeling safe in a relationship and no alcohol abuse. Patient reports on fatigue. Reports no runny nose or sinus pressure. No itching, no hives, and no frequent sneezing. PHYSICAL EXAMINATION: GENERAL APPEARANCE: Well-nourished, well-developed, appears stated age. Level of distress, comfortable. PSYCHIATRIC: Mental status, alert, normal affect. Orientation, oriented to time, place and person. EYES: Lids and conjunctiva, noninjected. No discharge, no pallor. ENT: Lips, teeth, gums, normal dentition. Oropharynx, no cyanosis, no pallor. NECK: Carotid arteries, bilateral normal upstroke, no bruits, no thrills. JUGULAR VEINS: No jugular venous pressure or distention. CERVICAL LYMPH NODES: Nontender, nonenlarged. THYROID: Not enlarged. Nontender. No nodules. LUNGS: Respiratory effort, unlabored. CHEST: Normal curvature. No thoracic deformity. No chest wall tenderness. Percussion, resonant. Auscultation, clear. No wheezes, no rales, no rhonchi. CARDIOVASCULAR: Precordial exam, nondisplaced. No heaves or pericardial thrills. Rate and rhythm, regular. Heart sounds, normal S1, normal S2. No S3, no gallop, no rub. Systolic murmur, not heard. Diastolic murmur, not heard. EXTREMITIES: No cyanosis, no edema. Peripheral pulses, full and equal in all extremities, except as noted. No bruits appreciated. HISTORY AND PHYSICAL [id number] SASKIA SÁNCHEZ ABDOMEN: Soft, nondistended. Normal aorta. No bruit. Nontender. No masses. Liver, nontender, no hepatomegaly. Spleen, nontender, no splenomegaly. MUSCULOSKELETAL: No joint tenderness. No joint swelling. No erythema. NEUROLOGICAL: Normal gait, normal strength, normal tone. SKIN: Warm and dry. OVERALL IMPRESSION: Anginal symptomatology with critical disease of the right coronary artery. We will proceed with percutaneous transluminal coronary angioplasty stent of the right coronary artery. TRANSINT:[id number] Voice Confirmation ID: [id number] DOCUMENT ID: [id number] DIPTI DONALD MD at 1546 CC: [id number] DICTATION DATE: 08/16/171111 PACU RN: 08/16/17 1124 [facility] CLI 08/16/17 [place] [address] [place] [id number]
== END 2017-08-16 16:40 | disposition home or self-care (01) ==
LOC: D.CATH 08:02
PROVIDERS: Internal Medicine Interventional Cardiology
DX: I25.119 Atherosclerotic heart disease of native coronary artery with unspecified angina pectoris (principal); I10 Essential (primary) hypertension; Z95.5 Presence of coronary angioplasty implant and graft; Z01.812 Encounter for preprocedural laboratory examination

== ENCOUNTER 2018-09-12 09:23 | Outpatient (CLI) | payer MEDICARE ==
[~2018-09-12] VITALS: Ht 182.9 cm; Wt 103.6 kg
--- NOTE | ~2018-09-12 | HEMODYNAMI ---
PATIENT:SASKIA SÁNCHEZ MEDICAL RECORD: [id number] : 46 LOCATION:[facility] ADMISSION DATE: 09/12/18 Generatedon:09/12/201811:23 Patient name: SASKIA SÁNCHEZ Patient #: [id number] : 1950 Date of study: 09/12/2018 Page: Of Hemodynamic Procedure Report Patient Data Patient Demographics Procedure consent was obtained First Name: SASKIA Gender: Male Last Name: PRINCESS : 1950 Middle Initial: OWEN Age: 68 year(s) Patient #: [id number] Race: Unknown SSN: [id number] Additional ID: [id number] Contact details Address: [address] [place] [address] lane State: [place] City: [place] Zip code: [address] Past Medical History Allergies: No known allergies Admission Admission Data Admission Date: 09/12/2018 Admission Time: 9:23 Procedure Procedure Types Cath Procedure Diagnostic Procedure [facility] w/Coronaries Sedation Charges Moderate Sedation up to 15 minutes Peripheral Cath Diagnostic Procedure 4-Vessel 4 Vessel Carotid Arterio Arch Procedure Description Procedure Date Procedure Date: 09/12/2018 Procedure Start Time: 11:08 Procedure End Time: 11:22 Procedure Staff Name Function Edi Panchal MD Performing Physician Nilam Manzano RT Monitor Jelly Layne RT Scrub Ellis Woodson RN Nurse Procedure Data Cath Procedure Fluoroscopy Diagnostic fluoroscopy Total fluoroscopy Time: 3.6 time: 3.6 min min Diagnostic fluoroscopy Total fluoroscopy dose: 884 dose: 884 mGy mGy Contrast Material Contrast Material Type Amount (ml) Isovue 300 115 Entry Location Entry Primary Successful Side Size Upsize Upsize Entry Closure Succes sful Closure Location (Fr) 1 (Fr) 2 (Fr) Remarks Device Remarks Femoral Right 5 Fr Exoseal artery Estimated blood loss: 10 ml Diagnostic catheters Device Type Used For End Catheter Placement MULTIPACK Pigtail 5 Fr Ventriculography catheter MULTIPACK JL 4.0 5Fr Procedure catheter MULTIPACK 3DRC 5Fr Procedure catheter Procedure Complications No complications Procedure Medications Medication Administration Route Dosage 0.9% NaCl I.V. 100 ml/hr Oxygen etCO2 Nasal cannula 2 l/min Heparin Flush Bag added to field 2 bags (1000units/500ml NS) Lidocaine 2% added to field 20 Versed I.V. 2 mg Fentanyl I.V. 100 mcg Versed I.V. 1 mg Hemodynamics Rest Heart Rate: 64 (bpm) Snapshots Pre Cath Intra NCS Post Cath Vital Signs Time Heart Resp SPO2 etCO2 NIBP (mmHg) Rhythm Pain Sedation Rate (ipm) (%) (mmHg) Status Level (bpm) 10:40:50 71 11 98 0 137/80(115) NSR 0 (11) 10(A) , No pain 10:45:04 66 9 98 0 130/71(110) NSR 0 (11) 10(A) , No pain 10:49:20 65 15 97 0 132/68(103) NSR 0 (11) 10(A) , No pain 10:53:30 65 18 94 0 107/64(78) NSR 0 (11) 10(A) , No pain 10:57:40 64 17 95 0 108/63(88) NSR 0 (11) 10(A) , No pain 11:01:50 62 19 94 45.5 110/61(74) NSR 0 (11) 10(A) , No pain 11:05:59 63 14 94 21.2 109/63(81) NSR 0 (11) 10(A) , No pain 11:10:07 61 19 94 0 101/65(83) NSR 0 (11) 9(A) , No pain 11:14:13 64 10 93 45.5 114/66(80) NSR 0 (11) 9(A) , No pain 11:18:25 60 19 92 11.3 106/63(83) NSR 0 (11) 9(A) , No pain 11:22:35 61 10 92 34.1 112/63(82) NSR 0 (11) 9(A) , No pain Medications Time Medication Route Dose Verified Delivered Reason Notes Eff ectiveness by by 10:58:56 0.9% NaCl I.V. 100 Elils Ellis Per ml/hr Kandice Woodson physician RN RN 10:59:05 Oxygen etCO2 2 Ellis Ellis Per Nasal l/min Lorigan Lorigan physician cannula RN RN 10:59:17 Heparin Flush added 2 Ellis Ellis used for Bag to bags Lorigan Lorigan procedure (1000units/500ml field RN RN NS) 10:59:27 Lidocaine 2% added 20ml Ellis Ellis for local to vial Lorigan Lorigan anesthetic field RN RN 11:03:23 Versed I.V. 2 mg Ellis Ellis for Lorigan Lorigan sedation RN RN 11:03:33 Fentanyl I.V. 100 Ellis Ellis for mcg Lorigan Lorigan sedation RN RN 11:08:31 Versed I.V. 1 mg Ellis Ellis for Lorigan Lorigan sedation RN buffing machine operator semiautomatic Log Time Note 10:15:29 Nilam Manzano RT(R) sent for patient. Start room use. 10:33:30 Time tracking: Regular hours (M-F 7:00 - 5:00) 10:33:34 Plan of Care:Hemodynamics will remain stable., Cardiac rhythm will remain stable., Comfort level will be maintained., Respiratory function will remain adequate., Patient/ family verbilizes understanding of procedure., Procedure tolerated without complication., Recovers from procedure without complications.. 10:33:45 Patient received from Pre/Post Procedure Room to CCL 2 Alert and oriented. Tansferred to table in Supine position. 10:33:46 Warm blankets applied, and mando hugger turned on for patient comfort. 10:33:46 Correct patient and procedure confirmed by team. 10:33:48 Signed procedure consent form obtained from patient. 10:33:49 ECG and BP/O2 sat monitors applied to patient. 10:39:48 Vital chart was started 10:44:16 Baseline sample Acquired. 10:44:19 Rhythm: sinus rhythm 10:44:20 Full Disclosure recording started 10:44:23 H&P Date Dictated: 09/12/2018 Within 30 days and on chart., H&P Addendum completed by physician on day of procedure. (MUST COMPLETE FOR ALL OUTPATIENTS). 10:44:24 Pre-procedure instructions explained to patient. 10:44:25 Pre-op teaching completed and patient verbalized understanding. 10:44:26 Family in waiting room. 10:44:28 Patient NPO since Midnight. 10:44:29 Is the patient allergic to Iodine/contrast media? No. 10:44:30 Was the patient premedicated? No 10:44:32 Is patient on blood thinner?Yes 10:44:34 ACC The patient was administered the following blood thiners within the last 24 hours: ACCPlavix 10:44:37 Patient diabetic? No. 10:44:39 Previous problem with sedation/anesthesia? No ? 10:44:40 Snore? Yes 10:44:41 Sleep apnea? Yes 10:44:42 Deviated septum? No 10:44:42 Opens mouth fully? Yes 10:44:43 Sticks out tongue? Yes 10:44:45 Airway obstruction? No ? 10:44:47 Dentures? No ? 10:44:50 Pre procedure: right dorsailis pedis pulse 2+ Normal; easily identifiable; not easily obliterated 10:44:53 Pre procedure: left dorsailis pedis pulse 2+ Normal; easily identifiable; not easily obliterated 10:44:56 Modified Johnathan's test Radial < 7 seconds 10:44:59 Patient pain scale 0/10 ?. 10:45:05 IV patent on arrival in left forearm with 0.9% NaCl at [facility]. 10:45:08 Lab results completed and on chart. 10:45:12 Right Radial & Right Groin area was prepped with chlora-prep and draped in sterile fashion 10:45:13 Alarms reviewed by R. N. 10:45:13 Sharps counted by scrub and verified by R.N. 10:56:32 Physician paged 10:58:56 0.9% NaCl 100 ml/hr I.V. was administered by Ellis Woodson RN; Per physician; 10:59:05 Oxygen 2 l/min etCO2 Nasal cannula was administered by Ellis Woodson RN; Per physician; 10:59:17 Heparin Flush Bag (1000units/500ml NS) 2 bags added to field was administered by Ellis Woodson RN; used for procedure; 10:59:27 Lidocaine 2% 20ml vial added to field was administered by Ellis Woodson RN; for local anesthetic; 11:01:31 Physician arrived 11:01:32 --------ALL STOP TIME OUT------ 11:01:33 Final Timeout: patient, procedure, and site verified with staff and physician. All members of the team are in agreement. 11:01:34 Right groin site verified by team. 11:01:37 Physical assessment completed. ASA score P 2 - A patient with mild systemic disease as per Edi Panchal MD. 11:01:41 Sedation plan: IV Moderate Sedation Medication:Versed, Fentanyl 11:01:49 Zero performed for pressure channel P1 11:02:25 Use device set Femoral Dx 11:02:27 ACIST Syringe (85883) opened to sterile field. 11:02:27 Bag Decanter (2002S) opened to sterile field. 11:02:28 Medline Cath Pack ([id number]) opened to sterile field. 11:02:29 DIAGNOSTIC WIRE .035 260cm J wire (092959) opened to sterile field. 11:02:31 ACIST Hand Control (60054) opened to sterile field. 11:02:32 ACIST Manifold (69653) opened to sterile field. 11:02:33 DIAGNOSTIC Multipack 5Fr catheter set ([id number]) opened to sterile field. 11:02:33 Tegaderm 4 x 4 (1626W) opened to sterile field. 11:02:38 SHEATH 5FR Hindman (IUI409) opened to sterile field. 11:03:23 Versed 2 mg I.V. was administered by Ellis Woodson RN; for sedation; 11:03:33 Fentanyl 100 mcg I.V. was administered by Ellis Woodson RN; for sedation; 11:07:21 Procedure started. 11:08:31 Versed 1 mg I.V. was administered by Ellis Woodson RN; for sedation; 11:08:43 Local anesthetic to right femoral artery with Lidocaine 2% by Edi Panchal MD.INITIAL ACCESS ONLY 11:08:53 A 5 Fr sheath was inserted into the Right Femoral artery 11:09:38 A MULTIPACK Pigtail 5 Fr catheter was advanced over the wire and used for Ventriculography. 11:09:51 LV angiography performed. 11:10:41 EF : 55 % 11:10:43 Catheter removed. 11:10:51 A MULTIPACK JL 4.0 5Fr catheter was advanced over the wire and used for Procedure. 11:10:55 LCA angiography performed. 11:11:56 Catheter removed. 11:12:08 A MULTIPACK 3DRC 5Fr catheter was advanced over the wire and used for Procedure. 11:12:26 RCA angiography performed. 11:14:33 Right carotid angiography performed. 11:14:46 Left carotid angiography performed. 11:16:38 Catheter removed. 11:18:36 Sheath removed intact; hemostasis achieved with Exoseal to the Right Femoral artery. 11:18:39 EXOSEAL 5Fr (EX500) opened to sterile field. 11:19:40 Procedure ended.(Physican Out) 11:19:56 Fluoroscopy time 03.60 minutes. 11:20:01 Fluoroscopy dose: 884 mGy 11:20:01 Flurop Dose total: 884 11:20:04 Contrast amount:Isovue 300 115ml. 11:20:05 Sharps counted by scrub and verified by R.N. 11:20:09 Insertion/operative site no bleeding no hematoma. 11:20:12 Post-op/insertion site Right Femoral artery dressed using a 4 x 4 and Tegaderm. 11:20:14 Post Procedure Pulses reassessed and unchanged 11:20:18 Post-procedure physical assessment completed. ASA score P 2 - A patient with mild systemic disease as per Edi Panchal MD. 11:20:21 Post procedure rhythm: unchanged. 11:20:23 Estimated blood loss: 10 ml 11:20:26 Post procedure instruction explained to patient.Patient verbalizes understanding. 11:21:29 Procedure type changed to Cath procedure, Diagnostic procedure, LHC, LHC w/Coronaries, Sedation Charges, Moderate Sedation up to 15 minutes, Peripheral Cath Diagnostic Procedure, 4-Vessel, 4 Vessel Carotid Arterio Arch 11:21:32 Procedure and supply charges have been captured, reviewed, submitted and are correct. 11:22:44 Procedure Complication : No complications 11:22:46 Vital chart was stopped 11:22:47 See physician's report for complete and final results. 11:22:49 Report given to Pre/Post Procedure Room. 11:22:52 Patient transfered to Pre/Post Procedure Room with Stretcher. 11:22:55 Procedure ended. 11:22:55 Full Disclosure recording stopped 11:23:05 End room use (Document Last) Device Usage Item Name Manufacture Quantity Catalog Hospital Part Current Minimal L ot# / Number Charge Number Stock Stock Serial# Code [facility] 1 34043 [id number] [id number] [id number] 20 Syringe Medical (56532) Systems Inc Bag Microtek 1 2001S 120576 37624 238480 5 Decanter Medical Inc. () Medline Medline 1 [id number] 586099 24392 346506 5 Cath Pack ([id number]) DIAGNOSTIC [facility] 1 295705 869406 213326 389958 30 WIRE .035 260cm J wire (458272) ACIST Hand Acist 1 22357 008888 965974 831497 5 Control Medical (71692) Systems Inc ACIST Acist 1 91414 132491 923444 135117 5 Manifold Medical (56643) Systems Inc DIAGNOSTIC Cardinal 1 [id number] 522322 25683 593060 30 Multipack Health 5Fr catheter set ([id number]) Tegaderm 4 3M 1 1626W 651437 396107 191638 5 x 4 (1626W) SHEATH 5FR Terumo 1 AMR519 316241 781402 299743 5 Hindman (QIG745) MULTIPACK Cardinal 1 005883 5 Pigtail 5 Health Fr catheter MULTIPACK Cardinal 1 132909 5 JL 4.0 5Fr Health catheter MULTIPACK Cardinal 1 104021 5 3DRC 5Fr Health catheter EXOSEAL 5Fr Cardinal 1 EX500 815442 899710 809019 10 (EX500) Health Signature Audit [place] Time Signature Unsigned Intra-Procedure 09/12/2018 Nilam Manzano 11:23:32 AM RT(R) Signatures Monitor : Nilam Manzano Signature : RT Date : Time : [id number] [place] [address]
[2018-09-12] MEDS ORDERED: NITROQUICK0.4 MG SL (09:50)
[2018-09-12 09:59] VITALS: BP 145/70; Ht 182.9 cm; Wt 103.6 kg
[2018-09-12 10:08] LABS: BASOPHILS 0.3 % (0-2); HEMATOCRIT 41.8 % (42.0-54.0); HEMOGLOBIN 14.5 g/dL (13.5-17.5); IMMATURE GRANULOCYTES 0.2 % (0-5); LYMPHOCYTES 20.6 % (15-50); MCH 30.7 pg (26.0-34.0); MCHC 34.7 g/dL (31.0-37.0); MCV 88.4 fL (80.0-100.0); MEAN PLATELET VOLUME 9.7 fL (7.4-10.4); MONOCYTES 8.7 % (2-11); NEUTROPHILS 69.2 % (40-80); PLATELET COUNT 231 10x3/uL (130-400); RBC 4.73 10x6/uL (4.20-6.10); RDW 12.2 % (11.5-14.5); WBC 5.9 10x3/uL (4.8-10.8)
[2018-09-12 10:24] LABS: ANION GAP 10.6 mmol/L (8-16); CALCIUM 10.1 mg/dL (8.5-10.1); CARBON DIOXIDE 28.2 mmol/L (21.0-32.0); CREATININE - SERUM 1.1 mg/dL (0.6-1.3); POTASSIUM - SERUM 3.8 mmol/L (3.5-5.1)
--- NOTE | 2018-09-12 11:52 | NUR ---
PT. SLEEPING. AROUSES TO VOICE. DENIES PAIN. VSS. HR 60. O2 SAT 96% ON 2LNC. BP 100/61. DENIES CP. RIGHT GROIN C/D/I. 2+ PEDAL PULSES. + CAP REFILL. AT BS
--- NOTE | 2018-09-12 12:39 | NUR ---
PT. SLEEPING. VSS. RIGHT GROIN C/D/I. NO BLEEDING. NO HEMATOMA. 2+ PEDAL PULSES.
--- NOTE | 2018-09-12 13:06 | NUR ---
RESTING. QUIETLY. DENIES PAIN. 02 REMOVED,. VSS. INCREASED HOB. RIGHT GROIN C/D/I. 2+ PEDAL PULSE. REFUSING FOOD AT THIS TIME. TOLERATING WATER. NO N/V
--- NOTE | 2018-09-12 13:25 | NUR ---
PIV. REMOVED. DISCHARGE INSTRUCTIONS REVIEWED WITH PATIENT. QUESTIONS ANSWERED. RIGHT GROIN C/D/I. PT. DISCHARGED IN HOME WITH FAMILY
--- NOTE | 2018-09-12 13:29 | OP ---
PATIENT NAME: SASKIA SÁNCHEZ MEDICAL RECORD: [id number] :46 LOCATION:D.CAT ADMISSION DATE: SURGEON: DIPTI DONALD MD DATE OF OPERATION: 09/12/2018 DATE OF SERVICE: 09/12/2018 PROCEDURES: 1. Left heart catheterization. 2. Selective coronary angiography. 3. Left ventriculogram. 4. Four-vessel carotid and vertebral angiography. INDICATION: Angina, coronary artery disease, previous PTCA stent, unsteady gait, dizziness, near-syncope, carotid vascular disease. PROCEDURE IN DETAIL: After informed consent was obtained and after a detailed description of the risks, benefits as well as alternative therapies, the patient elected to proceed with angiogram and heart catheterization. The right femoral area was prepped and draped in normal sterile fashion. Right femoral artery was cannulated via modified Seldinger technique with placement of 6-[place] Island[place] sheath. All catheters exchanged through this sheath. FINDINGS: The left ventriculogram was performed in standard 30-degree AVILES view, reveals good cardiac wall motions throughout all segments. Overall ejection fraction is estimated at 60%. SELECTIVE CORONARY ANGIOGRAPHY: 1. Left main is with no significant angiographic disease. 2. Left anterior descending has previously placed stents, these are widely patent with no significant restenosis. No disease elsewise at the LAD or its branches. 3. 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 4. The right coronary has multiple previously placed stents. These are widely patent with no significant restenosis. No disease elsewise of the RCA or its branches. Excellent collateralization from right to the left of the distal circumflex. FOUR-VESSEL CAROTID AND VERTEBRAL ANGIOGRAPHY: There was subselection of each subclavian as well as the left carotid. FINDINGS: 1. Right side: Common internal and external carotids have mild plaquing, none greater than 20%, no flow-limiting stenosis and vertebral artery has no significant disease. 2. Left system: The common internal and external carotids have mild plaquing. None greater than 30% stenosis. No flow-limiting stenosis. Vertebral artery has no significant disease. OVERALL IMPRESSION: Wide patency of previously placed stents, no disease elsewise with excellent collateralization of the distal circumflex. It is a chronic total occlusion, unchanged from previous angiography. Continue medical management of the coronary artery disease and cardiac risk factors. No significant carotid vascular disease is present. Symptomatology is not secondary to carotid vascular insufficiency. OPERATIVE REPORT [id number] PRINCESSSASKIA OWEN TRANSINT:[id number] Voice Confirmation ID: [id number] DOCUMENT ID: [id number] DIPTI DONALD MD at 1329 CC: [id number] DICTATION DATE: 09/12/18 1122 PROSTHETICS ASSISTANT: 09/12/18 1137 [address] [place] [id number] [place] [address]
== END 2018-09-12 13:30 ==
LOC: D.CATH 09:23
PROVIDERS: Internal Medicine Interventional Cardiology
DX: I25.119 Atherosclerotic heart disease of native coronary artery with unspecified angina pectoris (principal); I25.82 Chronic total occlusion of coronary artery; R55 Syncope and collapse; R26.81 Unsteadiness on feet